=== PATIENT | female | born 1995 | race Caucasian/White ===

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

== ENCOUNTER 2017-04-12 10:01 | Emergency (ER) | payer SELFPAY ==
--- NOTE | 2017-04-12 11:07 | EDPHY ---
General Narrative: CHIEF COMPLAINT: Vaginal bleeding, 8 weeks HISTORY OF PRESENT ILLNESS: Patient complains of vaginal bleeding that started 9:00 a.m. this morning. This started while she was at work. She went to break and fell some lower pelvic cramping and noted that she was bleeding. She has not applied any pads or tampons. She came directly here. This is associated with [id number]-dmejurmr pelvic cramping that has been steady. No fever. No flank pain. No lightheadedness or syncope. She reports last menstrual period of February 12, 2017. This puts her at approximately 8 weeks-station. She is a with most recent miscarriage 3 months ago. She reports being seen 2 weeks ago at outside hospital with a reportedly normal ultrasound. Unable to obtain this. No other associated complaints or modifying factors. REVIEW OF SYSTEMS: Ten systems reviewed and are negative unless otherwise noted in the HPI PCP: None SPECIALISTS: None PAST MEDICAL HISTORY: Ovarian cyst PAST SURGICAL HISTORY: None SOCIAL HISTORY: Nonsmoker. Works at a [employer] center at [employer] FAMILY HISTORY: Noncontributory EXAMINATION General Appearance: Alert, no distress Head: normocephalic, atraumatic Eyes: Pupils equal and round, no conjunctival pallor or injection ENT, Mouth: Mucous membranes moist Neck: Normal inspection, supple, non-tender Respiratory: Lungs are clear to auscultation Cardiovascular: Regular rate and rhythm. No murmur Gastrointestinal: Abdomen is soft and nondistended. Mild suprapubic tenderness. No CVA tenderness. No guarding. No rigidity or tympany. Pelvic exam: declined by patient Neurological: A&O, nonfocal, strength symmetric Skin: Warm and dry, no rash. No petechiae or purpura Extremities: Nontender, no pedal edema Psychiatric: Mood and affect normal DIFFERENTIAL DIAGNOSES: Including but not limited to threatened miscarriage, inevitable miscarriage, missed , vaginal bleeding in , subchorionic hemorrhage, ectopic MDM: 11:00 a.m. Pelvic cramping and vaginal bleeding and 8 weeks gestation. She is in no acute distress. She is not hypotensive. Ultrasound has been ordered. Rh type ordered. Laboratory studies are pending. 1:20 p.m. Contacted by radiologist Dr. Beyer. Findings from the ultrasound discussed. There is no heart tone noted. There is complex fluid structure in the lower portion of the uterus. Ultrasound findings suggest missed or incomplete . Laboratory studies complete with no significant finding. Rh positive. 1:30 p.m. Patient re-evaluated. Laboratory studies are negative for any acute findings. Hemoglobin is normal. Blood type is A positive, thus she will not need RhoGAM. I informed the patient of the ultrasound findings and she became very upset. I will re-evaluated few minutes. 1:40 p.m. Patient re-evaluated. She remains reasonably upset but in no acute distress. Vital signs are stable. I did offer recommended pelvic exam to determine if there are any products of conception in the office that are causing her cramps to worsen. At this time she is declining. I will discuss with OB. 1:50 p.m. Case discussed with OB physician Dr. Castañeda. She will come evaluate the patient in the emergency department and perform a pelvic exam. She is requesting that we obtain a copy of the ultrasound report from [facility]. I attempted to pull this up online using [employer], but I could not find information available. 2:20 p.m. I have obtained a copy of the ultrasound report from [facility]. It documented intrauterine presence of fetus estimated approximately 5 weeks gestation. No heart be detected at this gestational age. This report has been provided to Dr. Castañeda. 3:30 p.m. Contacted by Ob nurse crozer Stacey. She informed me that Dr. Castañeda will be with come see the patient within the next 0.5 hr. She also informed me that the patient may be discharged home and she is in stable condition. I have re- evaluated the patient and I do feel she would benefit from an OB consultation in the emergency department. Thus she is happy to wait for the physician to see her here in the emergency department. 4:[address] Castañeda has arrived to see the patient. 5:[address] Castañeda has evaluated the patient. She is requesting that I print a prescription for Cytotec for the patient. She will also be sent home with Zofran ODT and short course of pain medication. She will follow up in the office with Dr. Castañeda as discussed. We discussed ED precautions for bleeding or worsening pain. Patient is comfortable this plan. She will be discharged home stable condition. SUPERVISION: Patient was independently examined, but I discussed the case with my secondary supervising physician Dr. Mcnally - Diagnostics Imaging Results: Imaging Impressions Obstetrics Ultrasound 04/12/17 11:02 Impression: 1. Complex fluid in the lower uterine segment endometrial canal which may represent missed or blood products. 2. No normal intrauterine gestational sac and given the patient's history of prior outside ultrasound with intrauterine , these findings are consistent with missed . Please clinically correlate. 3. No adnexal masses, ovarian torsion or significant free fluid in the pelvis. Findings and recommendations discussed with Emergency Department physician, Jamar Burton at 1320 hour, 04/12/2017. Final report concurs with initial preliminary interpretation. - History Smoking Status: Former smoker - Objective Vital Signs: Initial Vital Signs Temperature (C) 97.9 F 04/12/17 10:10 Heart Rate 82 04/12/17 10:10 Respiratory Rate 20 04/12/17 10:10 Blood Pressure 113/74 04/12/17 10:10 O2 Sat (%) 100 04/12/17 10:10 O2 Delivery Mode Room Air Allergies/Adverse Reactions: Antihistamines - Alkylamine Allergy (Verified 04/12/17 10:09) Antihistamines - Ethanolamine Allergy (Verified 04/12/17 10:09) Antihistamines - Ethylenediamine Allergy (Verified 04/12/17 10:09) Antihistamines - Piperazine Allergy (Verified 04/12/17 10:09) Antihistamines - Piperidine Allergy (Verified 04/12/17 10:09) fentanyl Allergy (Verified 04/12/17 10:09) Iodinated Contrast- Oral and IV Dye [Iodinated Contrast Media - IV Dye] Allergy (Verified 04/12/17 10:09) Penicillins Allergy (Verified 04/12/17 10:09) Home Medications: Medication Instructions Recorded Misoprostol 400 mcg PO BID 2 Days tablet 04/12/17 Ondansetron Odt [Zofran Odt 4 mg 4 mg PO Q6 PRN #12 tab 04/12/17 (*)] Vitamins 04/12/17 oxyCODONE HCL/ACETAMINOPHEN 1 each PO Q4-6PRN PRN #11 tablet 04/12/17 [Percocet 5-325 mg Tablet] Laboratory Results: Laboratory Results 04/12/17 10:30 04/12/17 10:30 04/12/17 04/12/17 04/12/17 11:30 10:30 10:30 WBC 10.49 10^3/uL H 10^3/uL (3.80-9.50) RBC 5.47 10^6/uL H 10^6/uL (4.18-5.33) Hgb 13.9 g/dL g/dL (12.6-16.3) Hct 43.0 % % (38.0-47.0) MCV 78.6 fL L fL (81.5-99.8) MCH 25.4 pg L pg (27.9-34.1) MCHC 32.3 g/dL L g/dL (32.4-36.7) RDW 18.0 % H % (11.5-15.2) Plt Count 368 10^3/uL 10^3/uL (150-400) MPV 9.4 fL fL (8.7-11.7) Neut % (Auto) 64.6 % % (39.3-74.2) Lymph % (Auto) 27.0 % % (15.0-45.0) [place] % (Auto) 6.4 % % (4.5-13.0) Eos % (Auto) 1.2 % % (0.6-7.6) Baso % (Auto) 0.4 % % (0.3-1.7) Nucleat RBC Rel Count 0.0 % % (0.0-0.2) Absolute Neuts (auto) 6.78 10^3/uL H 10^3/uL (1.70-6.50) Absolute Lymphs (auto) 2.83 10^3/uL 10^3/uL (1.00-3.00) Absolute Monos (auto) 0.67 10^3/uL 10^3/uL (0.30-0.80) Absolute Eos (auto) 0.13 10^3/uL 10^3/uL (0.03-0.40) Absolute Basos (auto) 0.04 10^3/uL 10^3/uL (0.02-0.10) Absolute Nucleated RBC 0.00 10^3/uL 10^3/uL (0-0.01) Immature Gran % 0.4 % % (0.0-1.1) Immature Gran # 0.04 10^3/uL 10^3/uL (0.00-0.10) Sodium 142 mEq/L mEq/L (134-144) Potassium 3.9 mEq/L mEq/L (3.5-5.2) Chloride 107 mEq/L mEq/L (97-110) Carbon Dioxide 22 mEq/l mEq/l (22-31) Anion Gap 13 mEq/L mEq/L (8-16) BUN 7 mg/dL mg/dL (7-23) Creatinine 0.6 mg/dL mg/dL (0.6-1.0) Estimated GFR > 60 Glucose 87 mg/dL mg/dL (70-100) Calcium 9.9 mg/dL mg/dL (8.5-10.4) Lipase 74 IU/L IU/L (23-300) Beta HCG, Quant 5347.90 mIU/mL H mIU/mL (0.00-4.83) Patient ABO/Rh A POSITIVE Medications Given: Discontinued Medications Morphine Sulfate (Morphine) 4 mg IVP EDNOW ONE Stop: 04/12/17 11:32 Last Admin: 04/12/17 11:32 Dose: 4 mg Morphine Sulfate (Morphine) 4 mg IVP EDNOW ONE Stop: 04/12/17 14:25 Last Admin: 04/12/17 14:25 Dose: 4 mg Departure - Departure Disposition: Home, Routine, Self-Care Clinical Impression: Missed , Incomplete miscarriage Condition: Good Instructions: Miscarriage (ED) Additional Instructions: 1. Follow up with OB physician as discussed 2. Return to emergency department for bleeding greater than or equal to 1 pad per hour 3. Return to emergency department for any chest pain, lightheadedness, dizziness or loss of consciousness 4. Pain medication as prescribed to completion Referrals: Maia Castañeda DO [Doctor of Osteopathy] - As per Instructions Stand Alone Forms: Work Excuse Prescriptions: Misoprostol 400 mcg PO BID 2 Days tablet Ondansetron Odt [Zofran Odt 4 mg (*)] 4 mg PO Q6 PRN #12 tab PRN Reason: Nausea/Vomiting, Use 1st oxyCODONE HCL/ACETAMINOPHEN [Percocet 5-325 mg Tablet] 1 each PO Q4-6PRN PRN # 11 tablet PRN Reason: Pain, Breakthrough
[2017-04-12 11:15] LABS: ANION GAP 13 mEq/L (8-16); CALCIUM 9.9 mg/dL (8.5-10.4); CARBON DIOXIDE 22 mEq/l (22-31); CHLORIDE 107 mEq/L (97-110); CREATININE 0.6 mg/dL (0.6-1.0); GLOMERULAR FILTRATION RATE > 60; GLUCOSE 87 mg/dL (70-100); POTASSIUM 3.9 mEq/L (3.5-5.2); SODIUM 142 mEq/L (134-144)
[2017-04-12] MEDS ORDERED: fentaNYL 100 MCG/2 ML INJ ONE (11:19)
[2017-04-12 11:25] LABS: % IMMATURE GRANULYOCYTES 0.4 % (0.0-1.1); ABSOLUTE IMMATURE GRANULOCYTES 0.04 10^3/uL (0.00-0.10); ADD DIFF? NO; ADD MORPH? NO; ADD SCAN? NO; ATYPICAL LYMPHOCYTE FLAG 20 (0-99); FRAGMENT RBC FLAG 0 (0-99); HEMOGLOBIN 13.9 g/dL (12.6-16.3); LEFT SHIFT FLG 0 (0-99); LIPEMIA HEMOLYSIS FLAG 80 (0-99); MEAN CELL HEMOGLOBIN 25.4 pg (27.9-34.1); MEAN CELL HEMOGLOBIN CONCENTR. 32.3 g/dL (32.4-36.7); MEAN CELL VOLUME 78.6 fL (81.5-99.8); MEAN PLATELET VOLUME 9.4 fL (8.7-11.7); PLATELET CLUMPS FLAG 10 (0-99); PLATELET COUNT 368 10^3/uL (150-400); RED BLOOD CELL COUNT 5.47 10^6/uL (4.18-5.33)
[2017-04-12] MEDS ORDERED: ONDANSETRON 4MG PREPACK#2 BTL TAKEHOME ONE (17:07)
[2017-04-12] MEDS ORDERED: HYDROCOD/APAP 5/325 PREPACK#6 BTL TAKEHOME ONE (17:16)
[2017-04-12 17:36] VITALS: BP 110/70; PULSE 77; RESP 12; TEMP 97.3; O2SAT 97
--- NOTE | 2017-04-12 21:36 | GCON ---
[f rep st] CONSULTATION DATE OF CONSULTATION: 04/12/2017 REASON FOR CONSULTATION: Incomplete . INDICATIONS: Patient is a 21-year-old 4, para 1-0-2-1, who is approximately 6 weeks . She had a positive test and had small light spotting on April 01 and presented to [facility]. A transvaginal ultrasound showed a single sac-like structured within the alexis l aspect of the uterine canal with a mean sac diameter of 8.7 cm. There was a small yolk sac noted, which was 3 mm, but no definitive pole noted or cardiac activity was noted. A diagnosis of ear ly was made. The patient did not have any further bleeding until today when she began havi ng increasing bleeding and cramping. She presented to [facility] which showed comple x fluid in the lower uterine segment which may represent blood products or the gestational sac. No i ntrauterine gestational sac at the fundus. No adnexal masses were noted and the diagnosis of incompl ete has been made. Management options have been reviewed with the patient and her partner i ncluding expectant management versus medical management with Cytotec versus suction dilation curettag e. The patient is electing to go home and wait for expected management. She will be given a prescri ption for Cytotec and for pain medication and instructed to follow up in our office or at her [facility] in [place] to ensure there are no retained products of conception. The patient's medical history is unremarkable. MEDICATIONS: vitamins. SURGICAL HISTORY: Tonsillectomy. ALLERGIES: Penicillin which causes hives, fentanyl which causes hives and itching, antihistamines, a nd Benadryl which causes jitteriness and hives and IV contrast, which caused her to stop breathing. SOCIAL HISTORY: Patient denies tobacco, alcohol, or drug use. FAMILY MEDICAL HISTORY: Noncontributory except for a mom with Crohn's. [employer] HISTORY: Menarche age 15. Periods are regular. She is a 4, para 1-0-2-1. She had a spontaneous in early 2013. In April 2014 she had a spontaneous vaginal delivery at [facility] that was full-term. That was only complicated by sciatica. was uncomplicate d otherwise. She had a spontaneous earlier this year that did not require surgery. Current is incomplete . The patient denies any history of any abnormal Pap smears or sexua lly transmitted diseases. PHYSICAL EXAMINATION: VITAL SIGNS: Stable. GENERAL APPEARANCE: Alert and oriented x3. MUSCULOSKE LETAL: Grossly intact. NEURO: Was grossly intact. PSYCH: She has appropriate affect. NECK: Mob ile and supple. HEART: Rate is regular. LUNGS: Clear to auscultation bilaterally. ABDOMEN: Soft, nondistended, nontender. EXTREMITIES: Reveal no calf tenderness or edema. PELVIC: Speculum exam, there is a small amount of blood noted in her vagina. No active bleeding is noted. No products of conception were noted. A bimanual exam was performed. Cervix is slightly dilated and no cervical mo tion tenderness is noted. Patient's blood type is A positive. ASSESSMENT AND PLAN: A 21-year-old 4, para 1-0-2-1 and who is approximately 6 and half weeks gestation with a diagnosis of incomplete . We discussed management options of expected kriss gement versus management with Cytotec and pain medication and ibuprofen versus suction dilation and c urettage. The patient would like to go home with pain medicine and be managed expectantly. Bleeding precautions were reviewed as well as instructions for patient to follow up after she has pas sed more tissue to ensure that there are no retained products of conception. The patient is agreeabl e with the plan and will be discharged to home. /[id number]/MODL
== END 2017-04-12 17:35 | disposition home or self-care (01) ==
DX: O02.1 Missed abortion (principal); O03.4 Incomplete spontaneous abortion without complication; Z3A.08 8 weeks gestation of pregnancy; Z87.891 Personal history of nicotine dependence
CPT/HCPCS: 96374; J3010